=== PATIENT | female | born 1990 | race Caucasian/White ===

== ENCOUNTER 2022-06-30 05:05 | Emergency (ER) | payer SELFPAY ==
[~2022-06-30] VITALS: Ht 162.6 cm; Wt 69.0 kg
[2022-06-30 05:56] LABS: BASOPHILS % 0.8 % (0.0-2.0); EOSINOPHILS % 1.2 % (0.0-5.0); HEMATOCRIT. 38.8 % (36.0-48.0); HEMOGLOBIN. 13.2 g/dL (12.0-16.0); LYMPHOCYTES % 17.1 % (20.0-50.0); MEAN CORPUSCULAR HEMOGLOBIN 30.4 pg (28.0-32.0); MEAN PLATELET VOLUME 8.1 fl (7.4-10.4); MONOCYTES % 6.7 % (2.0-8.0); NEUTROPHILS % 74.2 % (40.0-76.0); PLATELET 292 x1000/uL (130-400); RED BLOOD CELL COUNT 4.36 mill/uL (4.2-5.4); RED CELL DISTRIBUTION WIDTH 13.8 % (11.6-14.6)
[2022-06-30] MEDS ORDERED: ONDANSETRON HCL 4MG/2ML INJ IV ONE (06:00)
[2022-06-30] MEDS ORDERED: LORAZEPAM 2MG/ML CPJ IV ONE (06:00)
[2022-06-30] MEDS ORDERED: SODIUM CHLORIDE 0.9% 1,000 ML IV ONE (06:00)
[2022-06-30 06:11] LABS: CHLORIDE 105 mEq/L (98-107)
[2022-06-30] MEDS ORDERED: KETOROLAC 30MG/ML VIAL IV ONE (06:15)
[2022-06-30] MEDS ORDERED: KCL 20MEQ/100ML PREMIX 100 ML IV ONE (06:45)
[2022-06-30 06:55] LABS: HCG SCREEN NEGATIVE
[2022-06-30] MEDS ORDERED: ONDANSETRON 4MG ODT PO ONE (09:00)
[2022-06-30 10:24] VITALS: BP 133/85
== END 2022-06-30 10:36 | disposition home or self-care (01) ==
LOC: ER 05:05
DX: R11.2 Nausea with vomiting, unspecified (principal); E87.6 Hypokalemia
CPT/HCPCS: 36415; 80053; 83690; 84703; 85025; 96365; 96375; 99284; J1885; J2060; J2405; J3480; J7030; Q0162; Z7610

== ENCOUNTER 2022-06-30 10:35 | Emergency (ER) | payer SELFPAY | END 2022-06-30 10:49 | disposition left against medical advice (07) | LOC: ER 10:35 | DX: R10.9 Unspecified abdominal pain (principal); Z53.21 Procedure and treatment not carried out due to patient leaving prior to being seen by health care provider | CPT/HCPCS: 99281 ==